=== PATIENT | female | born 1955 | race Caucasian/White ===

== ENCOUNTER 2016-06-21 08:44 | Emergency (ER) | payer OTHER ==
[~2016-06-21] VITALS: Ht 165.1 cm; Wt 77.8 kg
[~2016-06-21 08:44] MED LIST: AMBIEN10 MG PO; ASPIRIN EC325 MG PO; ATORVASTATIN CA80 MG PO; CLOPIDOGREL75 MG PO; ENDOCET 5-3251 EACH PO; KEFLEX500 MG PO; LEVOFLOXACIN750 MG PO; LEXAPRO20 MG PO; LISINOPRIL10 MG PO; LISINOPRIL2.5 MG PO; LO-DOSE ASPIRIN81 M1 PO; LOPRESSOR25 MG PO; MEDROL DOSEPAK4 MG PO; NAPROXEN500 MG PO; NICOTINE PATCH1 EAC1 TD; NICOTINE PATCH1 EAC2 TD; NORCO 5/3251 TABLET PO; PERCOCET 10/1 TABLET PO; PROVENTIL HFA6.7 GM IH; TRAMADOL HCL50 MG PO; ULTRAM50 MG PO; ZOFRAN ODT4 MG PO
[2016-06-21 10:17] LABS: EOSINOPHIL (%) 1.8 % (0-5); EOSINOPHIL COUNT 0.1 K/uL (0-0.3); HEMATOCRIT 40.3 % (36.0-46.0); IMMATURE GRANULOCYTE (%) 0.2 % (0.0-0.7); INSTRUMENT ABS NEUTROPHIL CT 3.1 K/uL; LYMPHOCYTE COUNT 1.9 K/uL (1.0-2.8); MCH 30.9 PG (29.0-34.0); MCHC 33.7 G/DL (30.0-36.0); MCV 91.6 FL (83-99); MEAN PLAT.VOLUME 9.6 uM^3 (9.5-12.4); MONOCYTE (%) 10.4 % (3-12); MONOCYTE COUNT 0.6 K/uL (0-0.8); NEUTROPHIL (%) 54.8 % (45-76); NEUTROPHIL COUNT 3.1 K/uL (1.8-6.4); PLATELET COUNT 287 K/uL (156-360); RBC DIS.WIDTH-CV 11.6 % (11.8-14.6); WHITE BLOOD COUNT 5.7 K/uL (4.1-10.2)
[2016-06-21 10:47] LABS: ALKALINE PHOSPHATASE 111 IU/L (3-129); ANION GAP 6 MEQ/L (2-14); CHLORIDE 105 MEQ/L (99-109); GFR ESTIMATE (CALCULATED) > 59 mL/min/; GLUCOSE 86 mg/dL (70-99); POTASSIUM 4.1 MEQ/L (3.7-5.4); SAMPLE HEMOLYSIS CHECK 0; SAMPLE ICTERIC CHECK 0; SAMPLE LIPEMIA CHECK 0; SODIUM 140 MEQ/L (136-147); TOTAL BILIRUBIN 0.4 MG/DL (0.0-1.0); UREA NITROGEN (BUN) 8 mg/dL (9-23)
[2016-06-21] MEDS ORDERED: VALIUM5 MG PO (12:58)
[2016-06-21 13:39] VITALS: BP 139/99
== END 2016-06-21 13:40 | disposition home or self-care (01) ==
LOC: EME 08:44
PROVIDERS: Physician Assistant
DX: M43.6 Torticollis (principal); I10 Essential (primary) hypertension; I25.2 Old myocardial infarction; E78.5 Hyperlipidemia, unspecified
CPT/HCPCS: 70496; 70498; 80053; 85025; 99281; 99284

== ENCOUNTER 2016-06-23 14:47 | Observation (INO) | payer OTHER ==
[~2016-06-23] VITALS: Ht 165.1 cm; Wt 78.9 kg
[~2016-06-23 14:47] MED LIST changes: +VALIUM5 MG PO
[2016-06-23 16:01] LABS: CHLORIDE 109 mEq/L (99-109); SODIUM 143 mEq/L (136-147)
[2016-06-23 16:02] LABS: D-DIMER ELISA 0.88 mg/L FEU (< 0.57); GLUCOSE 99 mg/dL (70-99); PROTHROMBIN TIME 10.1 (9.2-11.2); PTT 28.2 (25-32)
[2016-06-23 16:04] LABS: ANION GAP 8 MEQ/L (2-14); EOSINOPHIL (%) 0.8 % (0-5); EOSINOPHIL COUNT 0.1 K/uL (0-0.3); HEMATOCRIT 40.8 % (36.0-46.0); IMMATURE GRANULOCYTE (%) 0.2 % (0.0-0.7); INSTRUMENT ABS NEUTROPHIL CT 5.7 K/uL; LYMPHOCYTE COUNT 2.3 K/uL (1.0-2.8); MCH 30.8 PG (29.0-34.0); MCHC 33.6 G/DL (30.0-36.0); MCV 91.7 FL (83-99); MEAN PLAT.VOLUME 9.6 uM^3 (9.5-12.4); MONOCYTE (%) 5.9 % (3-12); MONOCYTE COUNT 0.5 K/uL (0-0.8); NEUTROPHIL (%) 66.4 % (45-76); NEUTROPHIL COUNT 5.7 K/uL (1.8-6.4); PLATELET COUNT 365 K/uL (156-360); RBC DIS.WIDTH-CV 11.8 % (11.8-14.6); RBC DIS.WIDTH-SD 39.6 % (39-53); RED BLOOD COUNT 4.45 M/uL (3.80-5.20); WHITE BLOOD COUNT 8.6 K/uL (4.1-10.2)
[2016-06-23 16:06] LABS: GFR ESTIMATE (CALCULATED) > 59 mL/min/
[2016-06-23 16:07] LABS: UREA NITROGEN (BUN) 11 mg/dL (9-23)
[2016-06-23 16:11] LABS: TROP-I INTERPRETATION NEGATIVE; TROPONIN-I < 0.01 ng/mL (0.0-0.30)
[2016-06-23] MEDS ORDERED: PLAVIX75 MG PO (18:15)
[2016-06-23] MEDS ORDERED: PRINIVIL5 MG PO (18:16)
[2016-06-23] MEDS ORDERED: METOPROLOL TART25 MG PO (18:16)
[2016-06-23] MEDS ORDERED: PRAVASTATIN SOD80 MG PO (18:16)
[2016-06-23] MEDS ORDERED: MORPHINE SULFAT15 M1 PO (18:17)
[2016-06-23] MEDS ORDERED: PERCOCET 10/1 TABLET PO (18:17)
[2016-06-23] MEDS ORDERED: AMBIEN5 MG PO (18:17)
[2016-06-23 22:19] LABS: TROP-I INTERPRETATION NEGATIVE; TROPONIN-I < 0.01 ng/mL (0.0-0.30)
[2016-06-23 22:42] VITALS: BP 118/69
[2016-06-24 04:55] VITALS: BP 93/54
[2016-06-24 04:57] LABS: TROP-I INTERPRETATION NEGATIVE; TROPONIN-I < 0.01 ng/mL (0.0-0.30)
[2016-06-24 05:10] LABS: HDL CHOLESTEROL 25 MG/DL (Desirable>=50); LDL CHOLESTEROL 93 mg/dL (Desirable<100); NON-HDL CHOLESTEROL 138 mg/dL (Desirable<160); TOTAL CHOLESTEROL 163 mg/dL (Desirable<200); TRIGLYCERIDES 223 MG/DL (Normal: <150)
== END 2016-06-24 11:28 | disposition home or self-care (01) ==
LOC: EME → EDBD 14:47 → EME 14:47 → EDOF 20:18 → 5WEST 20:18 → EDOF 20:18 → 5WEST 22:22
PROVIDERS: Emergency Medicine; Physician Assistant Medical
DX: R07.89 Other chest pain (principal); I10 Essential (primary) hypertension; E78.5 Hyperlipidemia, unspecified; I25.10 Atherosclerotic heart disease of native coronary artery without angina pectoris; J44.9 Chronic obstructive pulmonary disease, unspecified; I25.2 Old myocardial infarction; F41.9 Anxiety disorder, unspecified; F32.9 Major depressive disorder, single episode, unspecified
CPT/HCPCS: 71010; 71275; 80048; 80061; 84484; 85025; 85379; 85610; 85730; 93005; 94640; 99202; 99281; 99285; G0378; J1650; J7030